=== PATIENT | male | born 1965 | race Two or more races ===

== ENCOUNTER 2022-04-27 07:37 | Emergency (ER) | payer OTHER ==
[~2022-04-27] VITALS: Ht 157.5 cm; Wt 63.5 kg
[2022-04-27] MEDS ORDERED: HYDR1TAB94 PO (08:57)
== END 2022-04-27 09:10 | disposition home or self-care (01) ==
LOC: ER 07:37
DX: S29.012A Strain of muscle and tendon of back wall of thorax, initial encounter (principal); S39.012A Strain of muscle, fascia and tendon of lower back, initial encounter; S33.5XXA Sprain of ligaments of lumbar spine, initial encounter; S23.3XXA Sprain of ligaments of thoracic spine, initial encounter; V47.5XXA Car driver injured in collision with fixed or stationary object in traffic accident, initial encounter
CPT/HCPCS: 72070; 72100; A9270